=== PATIENT | female | born 1980 | race Caucasian/White ===

== ENCOUNTER 2018-11-04 16:00 | Emergency (ER) | payer MEDICAID ==
[~2018-11-04] VITALS: Ht 165.1 cm; Wt 68.1 kg
[2018-11-04 16:04] VITALS: BP 121/71
--- NOTE | 2018-11-04 16:31 | NUR ---
PT PRESENTS TO ED WITH C/O RIGHT WRIST, RIGHT KNEE PAIN, & HEADACHE S/P FALL & HIT HER HEAD ON A TREE X TODAY. RIGHT KNEE ABRASION WOUND & LEFT FOREHEAD HEMATOMA OBSERVED. STATES PT HAD A LOC FOR APPROX 2 MINS. DENIES NAUSEA, VOMITING, DIZZINESS OR BLURRED VISION. PUPILS EQUAL AND REACTIVE TO LIGHT BILATERALLY. PT IS ALERT AND ORIENTED TO PERSON, PLACE AND EVENT. BILATERAL HAND FOOD AND BEVERAGE ASSISTANT MANAGER EQUAL. BILATERAL FOOT PUSH EQUAL.
--- NOTE | 2018-11-04 16:34 | NUR ---
PT TAKEN TO CT
--- NOTE | 2018-11-04 16:55 | NUR ---
Patient returned from CT scan. RN re-evaluating patient at bedside.
[2018-11-04] MEDS ORDERED: HYDROcodone/APAP 5/325 MG 1 TAB TAB PO ONE (17:40)
--- NOTE | 2018-11-04 17:44 | NUR ---
report given to LUIS A Montes. Transfer of care at this time.
--- NOTE | 2018-11-04 17:45 | NUR ---
PLACED A SHORT ARM POSTERIOR SPLINT ON PT'S RIGHT WRIST. ALSO FITTED PT FOR AN ARM SLING.
[2018-11-04 18:15] VITALS: BP 119/68
--- NOTE | 2018-11-04 18:17 | NUR ---
Patient discharged with v/s stable. Written and verbal after care instructions given and explained. Patient alert, oriented and verbalized understanding of instructions. Ambulatory with steady gait. All questions addressed prior to discharge. ID band removed. Patient advised to follow up with PMD. Rx of NORCO, IBU given. Patient educated on indication of medication including possible reaction and side effects. Opportunity to ask questions provided and answered.
== END 2018-11-04 18:15 | disposition home or self-care (01) ==
LOC: MED 16:00
DX: S52.501A Unspecified fracture of the lower end of right radius, initial encounter for closed fracture (principal); S00.03XA Contusion of scalp, initial encounter; S80.211A Abrasion, right knee, initial encounter; W19.XXXA Unspecified fall, initial encounter; Y93.01 Activity, walking, marching and hiking; Y92.89 Other specified places as the place of occurrence of the external cause; Y99.8 Other external cause status
CPT/HCPCS: 70450; 73110; 73562; 81025; 99284